=== PATIENT | male | born 1965 | race Caucasian/White ===

== ENCOUNTER 2020-07-10 08:49 | Outpatient (CLI) | payer MEDICARE, MEDICAID, SELFPAY | END 2020-07-10 08:50 | disposition home or self-care (01) | LOC: ANHAUDIO 08:50 | DX: H91.93 Unspecified hearing loss, bilateral (principal) | CPT/HCPCS: 99199 ==

== ENCOUNTER 2020-08-10 07:46 | Outpatient (CLI) | payer MEDICARE, MEDICAID, SELFPAY | END 2020-08-10 07:47 | disposition home or self-care (01) | PROVIDERS: Visit Provider Family Medicine | DX: H90.3 Sensorineural hearing loss, bilateral (principal) | CPT/HCPCS: 92557; 92567 ==

== ENCOUNTER 2021-07-19 07:57 | Outpatient (CLI) | payer MEDICARE, MEDICAID, SELFPAY | END 2021-07-19 07:58 | disposition home or self-care (01) | LOC: ANHAUDIO 08:00 | PROVIDERS: PCP Family Medicine; Visit Provider Family Medicine | DX: H90.3 Sensorineural hearing loss, bilateral (principal) | CPT/HCPCS: 92557; 92567 ==

== ENCOUNTER 2022-05-20 09:02 | Outpatient (CLI) | payer MEDICARE, MEDICAID, SELFPAY | END 2022-05-20 09:03 | disposition home or self-care (01) | LOC: ANHAUDIO 09:02 | PROVIDERS: PCP Family Medicine; Visit Provider Family Medicine | DX: H90.3 Sensorineural hearing loss, bilateral (principal) | CPT/HCPCS: 92557; 92567 ==

== ENCOUNTER 2023-05-30 10:21 | Outpatient (CLI) | payer MEDICARE, MEDICAID, SELFPAY | END 2023-05-30 10:22 | disposition home or self-care (01) | LOC: ANHAUDIO 10:22 | PROVIDERS: PCP Family Medicine; Visit Provider Family Medicine | DX: H90.3 Sensorineural hearing loss, bilateral (principal) | CPT/HCPCS: 92557; 92567 ==

== ENCOUNTER 2024-06-03 08:01 | Outpatient (CLI) | payer MEDICARE, MEDICAID, SELFPAY ==
--- OUTSIDE RECORDS SUMMARY | 2024-06-03 08:10 | XMS_ITS | Clinical Summary ---
Author Organization [facility] Address [facility] [place] [address] Care Team Providers Care Interior Horticulturist Name Role Phone Cullen Galvez MD Primary Care Provider [phone] Allergies No known active allergies Medications atorvastatin (LIPITOR) 20 MG tablet Take 1 tablet (20 mg total) by mouth daily. 02/10/2022 Active Fenofibrate Micronized (LOFIBRA) 200 MG Cap capsule Take 1 capsule (200 mg total) by mouth daily. 02/10/2022 Active glipiZIDE (GLUCOTROL) 5 MG tablet Take 0.5 tablets (2.5 mg total) by mouth 2 (two) times daily with meals. 02/10/2022 Active lisinopril-hydr oCHLOROthiazide (ZESTORETIC) 10-12.5 MG tablet Take 1 tablet by mouth daily. 02/10/2022 Active metFORMIN (GLUCOPHAGE) 1000 MG tablet Take 1 tablet (1,000 mg total) by mouth 2 (two) times a day. 02/10/2022 Active OLANZapine (ZYPREXA) 7.5 MG tablet Take 1 tablet (7.5 mg total) by mouth daily. 02/10/2022 Active omeprazole (PRILOSEC) 20 MG capsule Take 1 capsule (20 mg total) by mouth daily. 02/10/2022 Active sertraline (ZOLOFT) 100 MG tablet Take 1 tablet (100 mg total) by mouth daily. 02/10/2022 Active acetaminophen (TYLENOL) 325 MG tablet Take 2 tablets (650 mg total) by mouth every 6 (six) hours as needed for Pain. Active Active Problems Problem Noted Date Diagnosed Date Acute pain of right knee 03/02/2022 Social History Tobacco Use Types Packs/Day Years Used Date Smoking Tobacco: Never Smokeless Tobacco: Never Tobacco Cessation:Counseling Given: Not Answered Alcohol Use Standard Drinks/Week Comments Never 0 (1 standard drink = 0.6 oz pur e alcohol) Sex and Gender Information Value Date Recorded Sex Assigned at Not on file Legal Sex Male 11:59 PM CDT Gender Identity Not on file Sexual Orientation Not on file Last Filed Vital Signs Vital Sign Reading Time Taken Comments Blood Pressure 109/65 05/10/2022 12:14 PM CDT Pulse 71 05/10/2022 12:14 PM CDT Temperature 36.4 C (97.5 F) 05/10/2022 12:14 PM CDT Respiratory Rate 18 05/10/2022 12:14 PM CDT Oxygen Saturation 100% 05/10/2022 12:14 PM CDT Inhaled Oxygen Concentration - - Weight 78.5 kg (173 lb) 05/03/2022 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 Height 167.6 cm (5' 6 ) 05/03/2022 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 Body Mass Index 27.92 05/03/2022 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 Plan of Treatment Health Maintenance Due Date Last Done Comments Colorectal Cancer Screening Colonoscopy (10 Years) 1965 Annual Physical 12/08/1967 Hepatitis C 1982 Zoster Vaccines (1 of 2) 2014 COVID-19 Vaccine (1 - 2023-2 5 season) 2023 DTaP, Tdap and Td Vaccines ( 2 - Td or Tdap) 08/28/2028 08/28/2018, 06/09/2008 Meningococcal B Vaccine Aged Out No l onger eligible based on patient's age to complete this topic Meningococcal Vaccine Aged Out No sheila andrea eligible based on patient's age to complete this topic Pneumococcal Vaccine: Pediatrics (0 to 5 Years) and At-Risk Patients (6 to 64 Years) Aged Out No longer eligible b ased on patient's age to complete this topic RSV Immunizations Under 20 Months Aged Out No longer eligible b ased on patient's age to complete this topic Insurance MEDICARE MEDICAID Care Teams Interior Horticulturist Relationship Specialty Start Date End Date Cullen Galvez MD PCP - General FAMILY PRACTICE 03/02/22
--- OUTSIDE RECORDS SUMMARY | 2024-06-03 08:10 | XMS_ITS ---
Author Organization [facility] Address [address] [place] [address] Care Team Providers Care Emergency Veterinary Assistant Name Role Phone ANGELY FELDMAN Unavailable [phone] Cullen Galvez Unavailable Unavailable REASON FOR VISIT PVD Medications Medication SIG (Take, Route, Frequency, Duration) Notes Start Date End Date Status SERTRALINE 100 for -2 *Reorder from Medispan for eRx and Interaction Alerts* 09/09/2021 Active Fenofibrate for -2 *Pick strength-f orm from Medispan for eRX* 09/09/2021 Active Omeprazole for -2 *Pick strength-f orm from Medispan for eRX* 09/09/2021 Active OLANZapine for -2 *Pick strength-f orm from Medispan for eRX* 09/09/2021 Active glipiZIDE for -2 *Pick strength-f orm from Medispan for eRX* 09/09/2021 Active Metformin for -2 *Reorder from Medispan for eRx and Interaction Alerts* 09/09/2021 Active Lisinopril for -2 *Pick strength-f orm from Medispan for eRX* 09/09/2021 Active Acetaminophen 325 MG Oral for -2 09/09/2021 Active Vital Signs Blood pressure systolic 108 mm Hg 03/25/19 25 Blood pressure diastolic 74 mm Hg 025 Heart Rate 78 /min 03/25/2024 Height 66 in 03/25/2024 Weight 184 lbs 03/25/2024 BMI 29.7 kg/m2 03/25/2024 Height-cm 167.64 cm 03/25/2024 Weight-kg 83.46 kg 03/25/2024 Encounters Encounter Location Date Provider Diagnosis [facility] [address] 03/25/2024 ANGELY FELDMAN Onychogryphosis L60. 2 and Other specified peripheral vascular diseases I73.89 Assessments Encounter Date Diagnosis (ICD Code) Assessment Notes Treatment Notes Treatment Clinical Notes Section Notes 03/25/2024 Onychogryphosis (ICD-10 - L60.2) 03/25/2024 Other specified peripheral vascular diseases (ICD-10 - I73.89) We discussed preventative foot care. We discussed preventative foot hygiene. We instructed the patient on how to care for their feet, and to contact the office if any wounds develop, or signs of infection arise. The nails were debrided of all fungal material and debris. Debridement included a reduction in bulk of the nail by use of a sharp damage cutter and/or rotary instrument. Reason for debridement include relief of pain, treatment of infection, temporary removal of an anatomic deformity such as onychauxis or onychocryptosis, exposure of subungual conditions for the purpose of treatment as well as diagnosis, and/or as a prophylactic measure to prevent further problems, such as subungual ulceration in an insensate patient with onychauxis. Antiseptic was applied. Debrided 10 nails. Plan Of Treatment Treatment Notes Assessment Notes Other specified peripheral v ascular diseases We discussed preventative foot care. We discussed preventative foot hygiene. We instructed the patient on how to care for their feet, and to contact the office if any wounds develop, or signs of infection arise. The nails were debrided of all fungal material and debris. Debridement included a reduction in bulk of the nail by use of a sharp damage cutter and/or rotary instrument. Reason for debridement include relief of pain, treatment of infection, temporary removal of an anatomic deformity such as onychauxis or onychocryptosis, exposure of subungual conditions for the purpose of treatment as well as diagnosis, and/or as a prophylactic measure to prevent further problems, such as subungual ulceration in an insensate patient with onychauxis. Antiseptic was applied. Debrided 10 nails. Next Appt Details Follow Up: 2 Months, Reason: PVD Provider Name:TRISTIN Whitman, 06/24/2024 01:15:00 PM, [address] [place], [address], Progress Notes * MELISSA LARA LDOB:1965 (58 yo M)Acc No.[id number]:03/25/2024 Patient: MELISSA MALDONADO Provider: Facundo Feldman DPM :1965 A ge:58 Y S ex:Male Date:03/25/2024 Address:[address] [place], [place] [id number] Subjective: * Chief Complaints: * P VD * HPI: N ails: The patient relates t o having difficulty trimming their nails, that all of their nails are thickened, that all of their nails are discolored. * ROS: G eneral / Constitutional: Patient denies c hills, fatigue, fever, headache. ? E NT: Patient denies s ore throat, sinus pain. R espiratory: Patient denies c ough, chest pain, shortness of breath.? C ardiovascular: Patient denies p alpitations, chest pain with exertion.? G astrointestinal: Patient denies a bdominal pain, constipation, diarrhea, vomiting, nausea. * Medical History: * Surgical History: * Hospitalization/Major Diagno stic Procedure: * Medications: T akingLisinopril , Notes to Pharmacist: *Pick strength-form from Medispan for eRX*Metformin , Notes to Pharmacist: *Reorder from Medispan for eRx and Interaction Alerts*Acetaminophen 325 MG Tablet Oral glipiZIDE , Notes to Pharmacist: *Pick strength-form from Medispan for eRX*SERTRALINE 100 , Notes to Pharmacist: *Reorder from Medispan for eRx and Interaction Alerts*OLANZapine , Notes to Pharmacist: *Pick strength-form from Medispan for eRX*Omeprazole , Notes to Pharmacist: *Pick strength-form from Medispan for eRX*Fenofibrate , Notes to Pharmacist: *Pick strength-form from Medispan for eRX*Taking Lisinopril , Notes to Pharmacist: *Pick strength-form from Medispan for eRX*Taking Metformin , Notes to Pharmacist: *Reorder from Medispan for eRx and Interaction Alerts*Taking Acetaminophen 325 MG Tablet Oral Taking glipiZIDE , Notes to Pharmacist: *Pick strength-form from Medispan for eRX*Taking SERTRALINE 100 , Notes to Pharmacist: *Reorder from Medispan for eRx and Interaction Alerts*Taking OLANZapine , Notes to Pharmacist: *Pick strength-form from Medispan for eRX*Taking Omeprazole , Notes to Pharmacist: *Pick strength-form from Medispan for eRX*Taking Fenofibrate , Notes to Pharmacist: *Pick strength-form from Medispan for eRX* Objective: * Vitals: H t: 66 in, Wt:184lbs, BP:108/74mm Hg, HR:78/min, BMI:29.7Index, Wt-k.46 kg, Ht-cm: 167.64 cm, Body Surface Area: 1.97. * Examination: D ermatologic: Skin findings: b ilateral, cool and dry, no open ulcerations or interdigital macerations. Nail pathology: d igits 1-5, bilateral, discolored, thickened, with onychodystrophy, with subungual debris. V ascular: Dorsalis pedis pulse: 1 /4, bilateral. Posterior tibial pulse: 1 /4, left. Capillary refill: s lightly delayed, bilaterally. ? N eurologic: Gross sensation i ntact. C lass Findings: Class C Findings (Q9) A bsent posterior tibial pulse right, Nail thickening, Pt complains of paresthesias, Pt complains of edema, Pt complains of cold feet.? M usculoskeletal: Foot morphology: n ormal. Joint range of motion: b ilateral, ankle, with decreased range of motion. Pain elicited with palpation of: n o noted pain on palpation. Pain elicited with range of motion: n o noted pain with range of motion. Assessment: * Assessment: 1. O ther specified peripheral vascular diseases - I73.89 (Primary) 2 . O nychogryphosis - L60.2 Plan: * Treatment: * Procedure Codes: 1 1721 DEBRIDE NAIL, 6 OR MORE, Modifiers: Q9 * Follow Up: 2 Months (Reason: PVD) * Billing Information: * Visit Code: * Procedure Codes: 43058 DEBRIDE NAIL, 6 OR MORE. 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 Sign off status: Completed true * Provider: Facundo Feldman DPM Date: 0 03/25/2024 Generated for Agustina Cohen/Alex on: 0 06/03/2024 08:10 AM CDT History and Physical Notes * HPI (History of Present Illness) Category Sub-Category Detail Notes Category Not es Nails The patient relates to having di fficulty trimming their nails, that all of their nails are thickened, that all of their nails are discolored Examination Category Sub-Category Detail Notes Category Not es Dermatologic Skin findings: bilateral, cool and dry, no open ulcerations or interdigital macerations Nail pathology: digits 1-5, bilatera l, discolored, thickened, with onychodystrophy, with subungual debris Neurologic Gross sensation intact Musculoskeletal Foot morphology: normal Joint range of motion: bilateral, ankle, with decreased range of motion Pain elicited with palpation of: no note d pain on palpation Pain elicited with range of motion: no n oted pain with range of motion Vascular Dorsalis pedis pulse: 1/4, bilateral Capillary refill: slightly delayed, bi laterally Posterior tibial pulse: 1/4, left Class Findings Class C Findings (Q9) Absent pos terior tibial pulse right, Nail thickening, Pt complains of paresthesias, Pt complains of edema, Pt complains of cold feet
--- OUTSIDE RECORDS SUMMARY | 2024-06-03 08:10 | XMS_ITS ---
Author Organization [facility] Address [address] [place] [address] Care Team Providers Care Privacy Attorney Name Role Phone ANGELY FELDMAN Unavailable [phone] Cullen Galvez Unavailable Unavailable REASON FOR VISIT PVD Medications Medication SIG (Take, Route, Frequency, Duration) Notes Start Date End Date Status Metformin for -2 *Reorder from Medispan for eRx and Interaction Alerts* 09/09/2021 Active Acetaminophen 325 MG Oral for -2 09/09/2021 Active glipiZIDE for -2 *Pick strength-f orm from Medispan for eRX* 09/09/2021 Active SERTRALINE 100 for -2 *Reorder from Medispan for eRx and Interaction Alerts* 09/09/2021 Active OLANZapine for -2 *Pick strength-f orm from Medispan for eRX* 09/09/2021 Active Omeprazole for -2 *Pick strength-f orm from Medispan for eRX* 09/09/2021 Active Fenofibrate for -2 *Pick strength-f orm from Medispan for eRX* 09/09/2021 Active Lisinopril for -2 *Pick strength-f orm from Medispan for eRX* 09/09/2021 Active Vital Signs Blood pressure systolic 101 mm Hg 12/25/19 24 Blood pressure diastolic 71 mm Hg 024 Heart Rate 90 /min 12/25/2023 Height 66 in 12/25/2023 Weight 184 lbs 12/25/2023 BMI 29.7 kg/m2 12/25/2023 Height-cm 167.64 cm 12/25/2023 Weight-kg 83.46 kg 12/25/2023 Encounters Encounter Location Date Provider Diagnosis [facility] [place] [address] 12/25/2023 ANGELY FELDMAN Onychogryphosis L60. 2 and Other specified peripheral vascular diseases I73.89 Assessments Encounter Date Diagnosis (ICD Code) Assessment Notes Treatment Notes Treatment Clinical Notes Section Notes 12/25/2023 Onychogryphosis (ICD-10 - L60.2) 12/25/2023 Other specified peripheral vascular diseases (ICD-10 - [...] the nail by use of a sharp sole cutter and/or rotary instrument. Reason for debridement [...] the nail by use of a sharp sole cutter and/or rotary instrument. Reason for debridement [...] Name:TRISTIN Whitman, 06/24/2024 01:15:00 PM, [address] [facility] [place], [address], Progress Notes * MELISSA LARA LDOB:1965 (58 yo M)Acc No.[id number]:12/25/2023 Patient: MELISSA MALDONADO Provider: Facundo Feldman DPM :1965 A ge:58 Y S ex:Male Date:12/25/2023 Address:[address] [place], [place] [id number] Subjective: * Chief Complaints: * P VD [...] * Vitals: H t: 66 in, Wt:184lbs, BP:101/71mm Hg, HR:90/min, BMI:29.7Index, Wt-k.46 kg, Ht-cm: 167.64 cm, Body [...] Information: * Visit Code: * Procedure Codes: 62848 DEBRIDE NAIL, 6 OR MORE. Modifiers: Q9 * Sign off status: Completed true * Provider: Facundo Feldman DPM Date: Generated for Agustina Freedman on: 0 06/03/2024 08:10 AM CDT History [...]
--- OUTSIDE RECORDS SUMMARY | 2024-06-03 08:10 | XMS_ITS ---
Author Organization Unknown Address [address] [place] [phone] Phone Care Team Providers Care Wire Splicer Name Role Phone EDUARDO GONZALEZ Attending Unavailable EVANGELINA Valle Primary Unavailable Immunization Immunization Date Status Additional Notes Code Code System Influenza, split virus, quadrivalent, preservative 11/02/2022 Completed 158 C VX Influenza, split virus, quadrivalent, preservative 12/22/2020 Completed 158 C VX Influenza, split virus, quadrivalent, preservative 11/10/2021 Completed 158 C VX Td (adult), 2 Lf tetanus toxoid, preservative free, adsorbed 06/09/2008 Completed 09 CVX Tdap 08/28/2018 Completed 115 CVX Influenza, split virus, trivalent, preservative 2011 Completed 141 CVX Influenza, split virus, trivalent, preservative 11/28/2013 Completed 141 CVX Influenza, split virus, trivalent, preservative 11/08/2023 Completed 141 CVX Influenza, split virus, quadrivalent, preservative 11/09/2016 Completed 158 C VX Influenza, split virus, quadrivalent, preservative 11/15/2017 Completed 158 C VX Influenza, split virus, quadrivalent, preservative 11/14/2018 Completed 158 C VX Influenza, split virus, quadrivalent, preservative 12/02/2019 Completed 158 C VX tetanus toxoid, adsorbed Unknown Completed 35 CVX Influenza, high-dose, trivalent, PF 11/28/2011 Completed 135 CVX Pneumococcal conjugate PCV 13 Unknown Completed 133 CVX Results BEDSIDE GLUCOSE - Collect Da te/Time: 12/10/2023 21:27 [facility] ID: [id number] [address] [place], [place], [id number] LOINC: 54850-8 Test Value Unit Reference Range Code Code System Flag BEDSIDE GLUCOSE 319 mg/dl L=74 H=106 47542-7 LOINC H CBC W/O DIFF - Collect Date/ Time: 12/10/2023 20:25 [facility] ID: [id number] [place], [place], [id number] LOINC: 41305-2 Test Value Unit Reference Range Code Code System Flag WBC 3.1 10^3uL L=4.8 H=10.8 L RBC 4.19 10^6uL L=4.60 H=6.20 L HEMOGLOBIN 11.7 g/dL L=14.0 H=18.0 718-7 LOINC L HEMATOCRIT 35.7 VOL% L=42.0 H=52.0 4544-3 LOINC L MCV 85.2 fL L=80.0 H=94.0 MCH 27.9 pg L=27.0 H=32.0 MCHC 32.8 g/dL L=32.0 H=36.0 PLATELETS 113 10^3uL L=100 H=400 48585-8 LOINC RDW 14.0 % L=11.7 H=15.5 BASIC METABOLIC PANEL - Brant ect Date/Time: 12/10/2023 20:25 [facility] ID: [id number] [place], [place], [id number] LOINC: 62708-2 Test Value Unit Reference Range Code Code System Flag FASTING UNKNOWN BUN 16 mg/dL L=7 H=20 3094-0 LOINC CREATININE 1.20 mg/dL L=0.66 H=1.25 2160-0 LOINC GLUCOSE 473 mg/dL L=74 H=106 2345-7 LOINC H CALCIUM 9.8 mg/dL L=8.3 H=10.5 56805-7 LOINC SODIUM 136 mmol/L L=132 H=144 2951-2 LOINC POTASSIUM 4.0 mmol/L L=3.5 H=5.1 2823-3 LOINC CHLORIDE 104 mmol/L L=98 H=107 2075-0 LOINC CO2 20.0 mmol/L L=22.0 H=30.0 8-9 LOINC L ANION GAP 16 L=10 H=20 44918-7 LOINC BUN/CREAT 13.3 3097-3 LOINC AGE 58 37474-9 LOINC eGFR NON-AFR 66 ml/min eGFR AFR AMER 80 ml/min URINALYSIS w/Microscopy/C&S if indicated - Collect Date/Time: 12/10/2023 19:52 [facility] ID: [id number] [address] [place], [place], [id number] LOINC: 83177-1 Test Value Unit Reference Range Code Code System Flag UR SOURCE VOIDED 46214-6 LOINC COLOR LT YELLOW YELLOW 5778-6 LOINC CLARITY CLEAR CLEAR 65224-7 LOINC SPEC GRAVITY 1.010 1.000-1.030 5811-5 LOINC PH 6.0 5.0 - 6.5 5803-2 LOINC LEUK EST NEGATIVE NEGATIVE 5799-2 LOINC NITRATE NEGATIVE NEGATIVE PROTEIN NEGATIVE NEGATIVE 5804-0 LOINC GLUCOSE 3+ NEGATIVE 69456-7 LOINC KETONES NEGATIVE NEGATIVE 03603-0 LOINC UROBILINOGEN 1.0 NEGATIVE 5818-0 LOINC BILIRUBIN NEGATIVE NEGATIVE 30421-4 LOINC BLOOD NEGATIVE NEGATIVE 75591-6 LOINC WBC 0-2 0 - 2 69333-3 LOINC RBC 0-2 0 - 2 21322-7 LOINC EPITHELIAL RARE RARE-FEW 21313-9 LOINC BACTERIA FEW NONE SEEN 16091-5 LOINC MUCUS FEW NONE SEEN 8247-9 LOINC YEAST NOT PRESENT NOT PRESENT 79039-7 LOINC CASTS NONE SEEN 32410-7 LOINC CRYSTALS NONE SEEN 55619-4 LOINC CULTURE? NO 8251-1 LOINC DIAGNOSIS N/A BEDSIDE GLUCOSE - Collect Da te/Time: 12/10/2023 19:39 [facility] ID: [id number] [address] [place], [place], [id number] LOINC: 21321-1 Test Value Unit Reference Range Code Code System Flag BEDSIDE GLUCOSE 433 mg/dl L=74 H=106 85946-6 LOINC H Social History Type Status Start Date End Date Code Code Syst em Smoking History Never smoker (Never Smoked) 458075097 SNOMED CT Smoking History Unknown if ever smoked [address] Sex Male Medications Medication Start Date End Date Route Frequency Dose Code Code System Medication Instructions Home Meds Triple Antibiotic 400U/GM-5MG/GM-5000U Topical application Ointment 06/06/2012 Unknown TOPICAL APPLICATION BID 1 unit(s) 840719 RxNorm 1 EACH TOPICAL APPLICATION BID Sertraline 100MG Oral Tablet 06/06/2012 Unknown ORAL JAYLIN Y 100 MILLIGRA MS 454066 RxNorm 100 MILLIGRAMS ORAL DAILY Omeprazole D/R 20MG Oral Capsule, Delayed Release 06/06/2012 Unknown ORAL BID 20 MILLIGRA MS 629535 RxNorm 20 MILLIGRAMS ORAL BID Olanzapine 5MG Oral Tablet 06/06/2012 Unknown ORAL HS 5 MILLIGRA MS 521517 RxNorm 5 MILLIGRAMS ORAL HS Metformin 500MG Oral Tablet 06/06/2012 Unknown ORAL HS 500 MILLIGRA MS 604442 RxNorm 500 MILLIGRAMS ORAL HS Lisinopril and Hydrochlorothiazide 12.5MG-10MG Oral Tablet 06/06/2012 Unknown ORAL JAYLIN Y 1 unit(s) 404953 RxNorm 1 EACH ORAL DAILY Carbamoxide 6.5% Otic Solution 06/06/2012 Unknown OTIC WEEK LY 3 DROP 362566 RxNorm 3 DROP OTIC WEEKLY APAP/Hydrocodone Bitartrate 325MG-7.5MG Oral Tablet 06/23/2012 Unknown PO PRN Q4H 1 TAB 805376 RxNorm 1 TAB PO PRN Q4H Dulcolax 5MG Oral Tablet, Enteric Coated 06/23/2012 Unknown ORAL PRN Q DAY 2 TABLET 923223 RxNorm 2 TABLET ORAL PRN Q DAY Assessment You had the following problems:CHEST PAINFH: CHOLECYSTECTOMY Hospital Discharge Instructions Should you have any questions prior to discharge, please contact a member of your healthcare team. If you have left the hospital and have any questions, please contact your primary care physician. Reason For Referral No Data Found Problems Problem Start Date Resolved Date Status Code Code System CHEST PAIN active 76541504 SNOMED-CT FH: CHOLECYSTECTOMY active 946567921 SNOMED-CT Allergies and Adverse Reactions Allergy Substance Reaction Severity Start Date Concern Status Co de Code System No Known Drug Allergies Moderate Active 849124006 SNOMED-CT Plan of Treatment No Data Found Encounters Encounter Diagnosis Start Date Code Code Sys tem Type 2 diabetes mellitus without complications 024 SNOMED-CT Personal Care Team Section Performer Name Performer Role Active Date Inactive Da te
--- OUTSIDE RECORDS SUMMARY | 2024-06-03 08:11 | XMS_ITS ---
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 Phone WILMARJUAN MURTAZA Valle Attending Unavailable Immunization Immunization Date Status Additional Notes [...] PCV 13 Unknown Completed 133 CVX Results LIPID PANEL - Collect Date/T griffin: 09/07/2023 07:49 [facility] ID: [id number] [address] [place], [place], [phone] LOINC: 16247-9 Test Value Unit Reference Range Code Code System Flag FASTING YES CHOLESTEROL 146 mg/dL L=0 H=200 3-3 LOINC TRIGLYCERIDE 246 mg/dL L=0 H=150 2571-8 LOINC H HDL 23 mg/dL L=40 H=60 5-9 LOINC L LDL 89 mg/dL 2088-1 LOINC CBC W/ DIFF - Collect Date/T griffin: 09/07/2023 07:49 [facility] ID: [id number] [address] [place], [place], [phone] LOINC: 83060-8 Test Value Unit Reference Range Code Code System Flag WBC 3.7 10^3uL L=4.8 H=10.8 L RBC 5.37 10^6uL L=4.60 H=6.20 HEMOGLOBIN 14.6 g/dL L=14.0 H=18.0 718-7 LOINC HEMATOCRIT 44.5 VOL% L=42.0 H=52.0 4544-3 LOINC MCV 82.9 fL L=80.0 H=94.0 MCH 27.2 pg L=27.0 H=32.0 MCHC 32.8 g/dL L=32.0 H=36.0 PLATELETS 160 10^3uL L=100 H=400 91683-1 LOINC RDW 14.1 % L=11.7 H=15.5 %GRAN 56.1 % L=40.0 H=70.0 70306-9 LOINC %LYMPH 33.7 % L=20.0 H=45.0 736-9 LOINC %MONO 4.7 % L=2.0 H=10.0 70022-0 LOINC %EOS 3.3 % L=0.0 H=6.0 713-8 LOINC %BASO 0.8 % L=0.0 H=3.0 706-2 LOINC #NEUT 2.1 10^3uL L=1.9 H=7.6 92739-4 LOINC #LYMPH 1.2 10^3uL L=0.9 H=4.9 89258-9 LOINC #MONO 0.2 10^3uL L=0.1 H=0.9 63743-9 LOINC #EOS 0.1 10^3uL L=0.0 H=0.6 712-0 LOINC #BASO 0.03 10^3uL L=0.00 H=0.10 69992-2 LOINC #IM GRANS 0.1 10^3uL L=0.0 H=7.0 12342-6 LOINC %IM GRANS 1.4 % L=0.0 H=5.0 38964-3 LOINC %NRB 0.0 L=0.0 H=0.2 14506-8 LOINC #NRB 0.000 L=0.000 H=0.012 14418-4 LOINC MANUAL DIFF NOT INDICATED RBC MORPH NOT INDICATED COMPREHENSIVE METABOLIC PANE L - Collect Date/Time: 09/07/2023 07:49 [facility] ID: [id number] [address] [place], [place], [phone] LOINC: 52950-8 Test Value Unit Reference Range Code Code System Flag FASTING YES BUN 13 mg/dL L=7 H=20 3094-0 LOINC CREATININE 1.00 mg/dL L=0.66 H=1.25 2160-0 LOINC GLUCOSE 106 mg/dL L=74 H=106 2345-7 LOINC SODIUM 142 mmol/L L=132 H=144 2951-2 LOINC POTASSIUM 3.7 mmol/L L=3.5 H=5.1 2823-3 LOINC CHLORIDE 106 mmol/L L=98 H=107 2075-0 LOINC CO2 30.0 mmol/L L=22.0 H=30.0 2028-9 LOINC ANION GAP 10 L=10 H=20 22634-3 LOINC OSMOLALITY 295 mOs/kG L=280 H=296 51009-6 LOINC BUN/CREAT 13.0 3097-3 LOINC CALCIUM 10.1 mg/dL L=8.3 H=10.5 56740-8 LOINC AST 44 U/L L=15 H=46 1920-8 LOINC ALT 35 U/L L=9 H=72 1742-6 LOINC ALKALINE PHOS 43 U/L L=38 H=126 6768-6 LOINC TOTAL BILI 0.5 mg/dL L=0.2 H=1.3 1975-2 LOINC ALBUMIN 4.8 G/dL L=3.5 H=5.0 1751-7 LOINC TOTAL PROTEIN 7.1 g/L L=6.3 H=8.2 2885-2 LOINC A/G RATIO 2.1 58483-9 LOINC AGE 57 85742-6 LOINC eGFR NON-AFR 82 ml/min eGFR AFR AMER 99 ml/min HGB A1C -GLYCOHEMOGLOBIN - C ollect Date/Time: 09/07/2023 07:49 [facility] ID: [id number] [address] [place] [address], [id number] LOINC: 4548-4 Test Value Unit Reference Range Code Code System Flag HGBA1C 7.1 % 4548-4 LOINC VITAMIN B-12 - Collect Date/ Time: 09/07/2023 07:49 [facility] ID: [id number] [address] [place] [address], [id number] LOINC: 2132-9 Test Value Unit Reference Range Code Code System Flag VITAMIN B12 486 pq/mL L=239 H=931 Social History Type Status Start Date End Date Code Code Syst em Smoking History Never smoker (Never Smoked) 571204129 SNOMED CT Smoking History Unknown if ever smoked [address] Sex Male Medications Medication Start Date End Date Route Frequency Dose Code Code System Medication Instructions Home Meds Triple Antibiotic 400U/GM-5MG/GM-5000U Topical application Ointment 06/06/2012 Unknown TOPICAL APPLICATION BID 1 unit(s) 673814 RxNorm 1 EACH TOPICAL APPLICATION BID Sertraline 100MG Oral Tablet 06/06/2012 Unknown ORAL JAYLIN Y 100 [place]RA MS 960459 RxNorm 100 MILLIGRAMS ORAL DAILY Omeprazole D/R 20MG Oral Capsule, Delayed Release 06/06/2012 Unknown ORAL BID 20 MILLIGRA MS 293109 RxNorm 20 MILLIGRAMS ORAL BID Olanzapine 5MG Oral Tablet 06/06/2012 Unknown ORAL HS 5 MILLIGRA MS 714013 RxNorm 5 MILLIGRAMS ORAL HS Metformin 500MG Oral Tablet 06/06/2012 Unknown ORAL HS 500 MILL[address]RA MS 052282 RxNorm 500 MILLIGRAMS ORAL HS Lisinopril and Hydrochlorothiazide 12.5MG-10MG Oral Tablet 06/06/2012 Unknown ORAL JAYLIN Y 1 unit(s) 952394 RxNorm 1 EACH ORAL DAILY Carbamoxide 6.5% Otic Solution 06/06/2012 Unknown OTIC WEEK LY 3 DROP 325893 RxNorm 3 DROP OTIC WEEKLY APAP/Hydrocodone Bitartrate 325MG-7.5MG Oral Tablet 06/23/2012 Unknown PO PRN Q4H 1 TAB 396616 RxNorm 1 TAB PO PRN Q4H Dulcolax 5MG Oral Tablet, Enteric Coated 06/23/2012 Unknown ORAL PRN Q DAY 2 TABLET 127178 RxNorm 2 TABLET ORAL PRN Q DAY [...] Status Code Code System CHEST PAIN active 32869943 SNOMED-CT FH: CHOLECYSTECTOMY active 890154347 SNOMED-CT Allergies and Adverse Reactions Allergy Substance Reaction Severity Start Date Concern Status Co de Code System No Known Drug Allergies Moderate Active 985692000 SNOMED-CT Plan of Treatment No Data Found Encounters Encounter Diagnosis Start Date Code Code 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
--- OUTSIDE RECORDS SUMMARY | 2024-06-03 08:12 | XMS_ITS ---
Author Organization [facility] Address [address] [place] [address] Care Team Providers Care Director Of Corporate Responsibility Name Role Phone ANGELY FELDMAN Unavailable [phone] Cullen Galvez Unavailable Unavailable REASON FOR VISIT PVD Medications Medication SIG (Take, Route, Frequency, Duration) Notes Start Date End Date Status Fenofibrate for -2 *Pick strength-f orm from [...] 09/09/2021 Active Vital Signs Blood pressure systolic 110 mm Hg 10/09/19 24 Blood pressure diastolic 78 mm Hg 024 Heart Rate 82 /min 10/09/2023 Respiratory Rate 20 /min 10/09/2023 Height 66 in 10/09/2023 Weight 187 lbs 10/09/2023 BMI 30.18 kg/m2 10/09/2023 Height-cm 167.64 cm 10/09/2023 Weight-kg 84.82 kg 10/09/2023 Encounters Encounter Location Date Provider Diagnosis [facility] [address] [place] [address] 10/09/2023 ANGELY FELDMAN Onychogryphosis L60. 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 Reason for debridement [...] the nail by use of a sharp core cutter and/or rotary instrument. Reason for debridement [...] Name:TRISTIN Whitman, 06/24/2024 01:15:00 PM, [address] [place], [address], Progress Notes * MELISSA LARA LDOB:1965 (57 yo M)Acc No.[id number]:10/09/2023 Patient: MELISSA MALDONADO Provider: Facundo Feldman DPM :1965 A ge:57 Y S ex:Male Date:10/09/2023 Address:[address] [place], [place] [phone] Subjective: * Chief Complaints: * P VD [...] Objective: * Vitals: H t: 66 in, Wt:187lbs, BP:110/78mm Hg, HR:82/min, BMI:30.18Index, RR:20/min, Wt- k.82 kg, Ht-cm: 167.64 cm, Body Surface Area: 1.99. * Examination: D ermatologic: Skin findings: b [...] Information: * Visit Code: * Procedure Codes: 37596 DEBRIDE NAIL, 6 OR MORE. Modifiers: Q9 * Sign off status: Completed true * Provider: Facundo Feldman DPM Date: 0 10/09/2023 Generated for Agustina vazquez/Doug/Alex on: 0 06/03/2024 08:11 AM CDT History and Physical Notes * [...]
--- OUTSIDE RECORDS SUMMARY | 2024-06-03 08:12 | XMS_ITS ---
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 Role Phone WILMARJUAN MURTAZA Valle Attending [...] PCV 13 Unknown Completed 133 CVX Results CBC W/ DIFF - Collect Date/T griffin: 03/12/2024 07:25 [facility] ID: [id number] [address] [place] [address], [phone] LOINC: 71621-5 Test Value Unit Reference Range Code Code System Flag WBC 3.2 10^3uL L=4.8 H=10.8 L RBC 5.12 10^6uL L=4.60 H=6.20 HEMOGLOBIN 14.0 g/dL L=14.0 H=18.0 718-7 LOINC HEMATOCRIT 43.2 VOL% L=42.0 H=52.0 4544-3 LOINC MCV 84.4 fL L=80.0 H=94.0 MCH 27.3 pg L=27.0 H=32.0 MCHC 32.4 g/dL L=32.0 H=36.0 PLATELETS 152 10^3uL L=100 H=400 77411-7 LOINC RDW 13.7 % L=11.7 H=15.5 %GRAN 56.4 % L=40.0 H=70.0 87083-7 LOINC %LYMPH 34.0 % L=20.0 H=45.0 736-9 LOINC %MONO 5.0 % L=2.0 H=10.0 43856-8 LOINC %EOS 2.8 % L=0.0 H=6.0 713-8 LOINC %BASO 0.9 % L=0.0 H=3.0 706-2 LOINC #NEUT 1.8 10^3uL L=1.9 H=7.6 65126-5 LOINC L #LYMPH 1.1 10^3uL L=0.9 H=4.9 48913-4 LOINC #MONO 0.2 10^3uL L=0.1 H=0.9 86492-4 LOINC #EOS 0.1 10^3uL L=0.0 H=0.6 712-0 LOINC #BASO 0.03 10^3uL L=0.00 H=0.10 09816-6 LOINC #IM GRANS 0.0 10^3uL L=0.0 H=7.0 93356-2 LOINC %IM GRANS 0.9 % L=0.0 H=5.0 14023-1 LOINC %NRB 0.0 L=0.0 H=0.2 92732-2 LOINC #NRB 0.000 L=0.000 H=0.012 03609-9 LOINC MANUAL DIFF NOT INDICATED RBC MORPH NOT INDICATED LIPID PANEL - Collect Date/T griffin: 03/12/2024 07:25 [facility] ID: [id number] [place], [place], [id number] LOINC: 25933-2 Test Value Unit Reference Range Code Code System Flag FASTING YES CHOLESTEROL 139 mg/dL L=0 H=200 2092-3 LOINC TRIGLYCERIDE 240 mg/dL L=0 H=150 2570-8 LOINC H HDL 22 mg/dL L=40 H=60 2084-9 LOINC L LDL 76 mg/dL 2088-1 LOINC TSH - Collect Date/Time: 07:25 [facility] ID: [id number] [address] [place] [address], [id number] LOINC: 71269-7 Test Value Unit Reference Range Code Code System Flag TSH. 1.960 uIU/L L=0.470 H=4.680 80164-2 LOINC HGB A1C -GLYCOHEMOGLOBIN - C ollect Date/Time: 03/12/2024 07:25 [facility] ID: [id number] [address] [place] [address], [id number] LOINC: 4548-4 Test Value Unit Reference Range Code Code System Flag HGBA1C 7.7 % 4548-4 LOINC PSA-SCREENING - Collect Date /Time: 03/12/2024 07:25 [facility] ID: [id number] [address] [place] [address], [phone] LOINC: 2857-1 Test Value Unit Reference Range Code Code System Flag PSA SCREEN 1.4 ng/mL L=0.0 H=4.0 2857-1 LOINC COMPREHENSIVE METABOLIC PANE L - Collect Date/Time: 03/12/2024 07:25 [facility] ID: [id number] [address] [place], [place], [id number] LOINC: 84533-5 Test Value Unit Reference Range Code Code System Flag FASTING YES BUN 21 mg/dL L=7 H=20 3094-0 LOINC H CREATININE 0.90 mg/dL L=0.66 H=1.25 2160-0 LOINC GLUCOSE 157 mg/dL L=74 H=106 2345-7 LOINC H SODIUM 140 mmol/L L=132 H=144 2951-2 LOINC POTASSIUM 3.9 mmol/L L=3.5 H=5.1 2823-3 LOINC CHLORIDE 106 mmol/L L=98 H=107 2075-0 LOINC CO2 23.0 mmol/L L=22.0 H=30.0 2028-9 LOINC ANION GAP 15 L=10 H=20 55500-9 LOINC OSMOLALITY 296 mOs/kG L=280 H=296 45116-7 LOINC BUN/CREAT 23.3 3097-3 LOINC CALCIUM 9.4 mg/dL L=8.3 H=10.5 88444-0 LOINC AST 30 U/L L=15 H=46 1920-8 LOINC ALT 25 U/L L=9 H=72 1742-6 LOINC ALKALINE PHOS 36 U/L L=38 H=126 6768-6 LOINC L TOTAL BILI 0.4 mg/dL L=0.2 H=1.3 1975-2 LOINC ALBUMIN 4.7 G/dL L=3.5 H=5.0 1751-7 LOINC TOTAL PROTEIN 6.6 g/L L=6.3 H=8.2 2885-2 LOINC A/G RATIO 2.5 22928-6 LOINC AGE 58 37114-0 LOINC eGFR NON-AFR 92 ml/min eGFR AFR AMER 111 ml/min Social History Type Status Start Date End Date Code Code Syst em Smoking History Never smoker (Never Smoked) 243824407 SNOMED CT Smoking History Unknown if ever smoked [address] Sex Male Medications Medication Start Date End Date Route Frequency Dose Code Code System Medication Instructions Home Meds Triple Antibiotic 400U/GM-5MG/GM-5000U Topical application Ointment 06/06/2012 Unknown TOPICAL APPLICATION BID 1 unit(s) 057604 RxNorm 1 EACH TOPICAL APPLICATION BID Sertraline 100MG Oral Tablet 06/06/2012 Unknown ORAL JAYLIN Y 100 MILLIGRA MS 303279 RxNorm 100 MILLIGRAMS ORAL DAILY Omeprazole D/R 20MG Oral Capsule, Delayed Release 06/06/2012 Unknown ORAL BID 20 MILLIGRA MS 719984 RxNorm 20 MILLIGRAMS ORAL BID Olanzapine 5MG Oral Tablet 06/06/2012 Unknown ORAL HS 5 MILLIGRA MS 662123 RxNorm 5 MILLIGRAMS ORAL HS Metformin 500MG Oral Tablet 06/06/2012 Unknown ORAL HS 500 MILLIGRA MS 593575 RxNorm 500 MILLIGRAMS ORAL HS Lisinopril and Hydrochlorothiazide 12.5MG-10MG Oral Tablet 06/06/2012 Unknown ORAL JAYLIN Y 1 unit(s) 052187 RxNorm 1 EACH ORAL DAILY Carbamoxide 6.5% Otic Solution 06/06/2012 Unknown OTIC WEEK LY 3 DROP 105152 RxNorm 3 DROP OTIC WEEKLY APAP/Hydrocodone Bitartrate 325MG-7.5MG Oral Tablet 06/23/2012 Unknown PO PRN Q4H 1 TAB 302383 RxNorm 1 TAB PO PRN Q4H Dulcolax 5MG Oral Tablet, Enteric Coated 06/23/2012 Unknown ORAL PRN Q DAY 2 TABLET 775402 RxNorm 2 TABLET ORAL PRN Q DAY [...] Status Code Code System CHEST PAIN active 90428320 SNOMED-CT FH: CHOLECYSTECTOMY active 167709042 SNOMED-CT Allergies and Adverse Reactions Allergy Substance Reaction Severity Start Date Concern Status Co de Code System No Known Drug Allergies Moderate Active 431849382 SNOMED-CT Plan of Treatment No Data Found Encounters Encounter Diagnosis Start Date Code Code 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
== END 2024-06-03 08:02 | disposition home or self-care (01) ==
LOC: ANHAUDIO 08:02
PROVIDERS: PCP Family Medicine; Visit Provider Family Medicine
DX: H90.3 Sensorineural hearing loss, bilateral (principal)
CPT/HCPCS: 92557; 92567